=== PATIENT | born 1950 | race Caucasian/White ===

== ENCOUNTER → 2023-07-07 12:12 | Outpatient (BNVA) | payer OTHER, SELFPAY | PROVIDERS: Visit Provider Internal Medicine | DX: E07.9 Disorder of thyroid, unspecified (principal); E04.1 Nontoxic single thyroid nodule; E21.5 Disorder of parathyroid gland, unspecified; N20.0 Calculus of kidney; Z79.890 Hormone replacement therapy | CPT/HCPCS: 36415; 82310; 83970; 84439; 84443; 84480; 99204 ==

== ENCOUNTER 2023-07-29 09:33 | Outpatient (CLI) | payer OTHER, SELFPAY ==
--- NOTE | 2023-07-29 11:15 | US_ITS ---
WS: [id number] THYROID ULTRASOUND HISTORY: thyroid nodule COMPARISON: None available. Right lobe: 1.3 cm x 1.5 cm x 3.0 cm (w x ap x l). Volume: 2.9 cm3. Mild atrophy and heterogeneity with increased echogenicity involving the RIGHT lobe of the thyroid. T here are a few cystic areas but no solid mass which is identified. Left lobe: No LEFT thyroid identified. Probably surgically removed. Isthmus: 0.2 cm. US/US thyroid [id number] IMPRESSION: 1. Status post LEFT thyroidectomy. 2. Small caliber echogenic and heterogeneous RIGHT thyroid but no discrete mas s of concern.
== END 2023-07-29 09:34 | disposition home or self-care (01) ==
PROVIDERS: Visit Provider Internal Medicine
DX: E04.1 Nontoxic single thyroid nodule (principal); E21.5 Disorder of parathyroid gland, unspecified
CPT/HCPCS: 76536

== ENCOUNTER → 2023-10-07 07:51 | Outpatient (BNVA) | payer OTHER, SELFPAY | PROVIDERS: Referring Provider Nurse Practitioner Family; Visit Provider Specialist | DX: G43.711 Chronic migraine without aura, intractable, with status migrainosus (principal); G44.59 Other complicated headache syndrome; N20.0 Calculus of kidney; M54.81 Occipital neuralgia; Z98.890 Other specified postprocedural states; Z85.9 Personal history of malignant neoplasm, unspecified | CPT/HCPCS: 64405; 64450; 99204; 99205 ==

== ENCOUNTER → 2023-11-02 12:38 | Outpatient (BNVA) | payer OTHER, SELFPAY | PROVIDERS: Visit Provider Internal Medicine | DX: E04.1 Nontoxic single thyroid nodule (principal); E07.9 Disorder of thyroid, unspecified; E21.5 Disorder of parathyroid gland, unspecified | CPT/HCPCS: 36415; 82310; 83970; 84439; 84443; 84480 ==

== ENCOUNTER 2023-12-02 09:56 | Outpatient (CLI) | payer OTHER, SELFPAY ==
--- NOTE | 2023-12-02 10:45 | USR_ITS ---
PROCEDURE INFORMATION: Exam: US Soft Tissue Head and Neck, Thyroid Exam date and time: 12/02/2023 10:33 AM Age: 73 years old Clinical indication: Condition or disease; Thyroid disorder; Other: Thyroid nodule; Additional info: Thyroid nodule, include tirads TECHNIQUE: Imaging protocol: Real-time ultrasound scan of the neck with image documentation. Exam focused on the thyroid. COMPARISON: US thyroid [id number] 07/29/2023 9:39 AM FINDINGS: Right thyroid lobe: Right lobe measures 2.8 x 1 x 1.2 cm with a volume of 1.6 mL. Mild atrophy and heterogeneity. And isoechoic to slightly hyperechoic nodule measured superiorly within the right lobe, 0.7 x 0.7 x 0.9 cm. Left thyroid lobe: Left lobe not identified, surgically absent. (history of previous neck cancer on the left side with tissues removed) Isthmus: Isthmus measures 0.2 cm. Unremarkable. US/US thyroid [id number] IMPRESSION: 1. Previous left thyroidectomy with previous left neck cancer with soft tissue dissection. 2. 7 x 7 x 9 mm isoechoic to slightly hyperechoic nodule superior right lobe. TI-RADS category TR3, Mildly Suspicious. Due to subcentimeter size no FNA is recommended. Follow-up can be performed.
== END 2023-12-02 09:57 | disposition home or self-care (01) ==
LOC: RAD 09:56
PROVIDERS: Visit Provider Internal Medicine
DX: E04.1 Nontoxic single thyroid nodule (principal); E07.9 Disorder of thyroid, unspecified; E89.0 Postprocedural hypothyroidism; Z85.89 Personal history of malignant neoplasm of other organs and systems
CPT/HCPCS: 76536; 99213

== ENCOUNTER 2023-12-07 11:44 | Outpatient (CLI) | payer OTHER, SELFPAY ==
--- NOTE | 2023-12-07 12:15 | MR_ITS ---
WS: [id number] MRI HEAD WITH CONTRAST TECHNIQUE: Sagittal T1, T2 axial, T2 axial FLAIR, axial susceptibility weighted imaging, axial diffus ion weighted images, and coronal T2 images were obtained. Pre and post-T1 axial and post T1 coronal i mages. ADC and FSPGR images. CLINICAL INFORMATION: G43.711 - Chronic migraine without aura, intractable, wit... COMPARISON: None. FINDINGS: T1 and T2 hyperintense RIGHT frontoparietal subdural hematoma overlying the RIGHT cerebral convexity. This measures approximately 7 mm in maximal transverse dimension. Findings compatible with subacute subdural hematoma. Mild mass effect on the underlying brain parenchyma. Minimal mass effect on the RI GHT lateral ventricle. No midline shift. No hydrocephalus. Normal posterior fossa. Normal vascular flow voids at the skull base. Small vessel changes in the mayuri s. Paranasal sinuses and mastoid air cells are well aerated. Normal posterior nasopharynx. No abnormal intraparenchymal enhancement. Normal dural venous sinuses. MR/MR head wo/w con [id number] IMPRESSION: 1. Subacute RIGHT frontal parietal convexity subdural hematoma measuring appro ximately 7 mm in maximum transverse dimension. 2. Minimal mass effect on the underlying brain parenchyma. Minimal mass effect on the RIGHT lateral ventricle. No midline shift. 3. No other acute findings. Notified Gricel Coronel MD at 12/07/2023 1:25pm Findings discussed with Dr. Coronel. Dr. Coronel's clinic will follow-up wi th the patient via phone
== END 2023-12-07 11:45 | disposition home or self-care (01) ==
LOC: RAD 11:45
PROVIDERS: Visit Provider Specialist
DX: I62.02 Nontraumatic subacute subdural hemorrhage (principal); G43.711 Chronic migraine without aura, intractable, with status migrainosus
CPT/HCPCS: 70553

== ENCOUNTER → 2023-12-09 11:48 | Outpatient (BNVA) | payer OTHER, SELFPAY | PROVIDERS: Visit Provider Specialist | DX: G43.711 Chronic migraine without aura, intractable, with status migrainosus; N20.0 Calculus of kidney; M54.81 Occipital neuralgia; Z98.890 Other specified postprocedural states; Z85.9 Personal history of malignant neoplasm, unspecified; S06.5X1A Traumatic subdural hemorrhage with loss of consciousness of 30 minutes or less, initial encounter; X58.XXXA Exposure to other specified factors, initial encounter | CPT/HCPCS: 99215 ==